=== PATIENT | male | born 1955 | race African-American/Black ===

== ENCOUNTER 2023-05-16 15:25 | Outpatient (AMB) | payer BC, SELFPAY ==
--- NOTE | 2023-05-16 15:30 | HO.NEPHOV ---
HPI HPI Comments History of Present Illness Details I would the delight of seeing Daniel in consultation for [id number] hypertension. 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 He denies taking nonsteroidal anti-inflammatories. He has been on losartan and amlodipine and recently low-dose carvedilol has been introduced. He denies any coronary artery disease, congestive heart failure, carotid stenosis, CVA, peripheral arterial disease, renal artery stenosis, palpitation, syncope or having orthostatic symptoms. He does not have any chest pain, shortness of breath, paroxysmal nocturnal dyspnea, orthopnea or urinary symptoms. His renal functions are normal. Serum potassium is normal. He has not known to have hypercalcemia, hypokalemia, sleep apnea. He claims to be compliant with his medications. He is anxious that his blood pressure is not getting controlled. [facility], [facility]1983 Medical History (Updated 05/16/23 @ 15:59 by Erik Gore MD) Tubular adenoma of colon Mild intermittent asthma Left knee pain Hypertension Hypercholesteremia Epigastric pain Woodson's palsy Surgical History (Updated 05/16/23 @ 15:36 by Ofelia Arshad MA) History of knee replacement H/O colonoscopy Family History (Updated 05/16/23 @ 15:36 by Ofelia Arshad MA) Mother Cancer Father Hypertension Social History (Updated 05/16/23 @ 15:37 by Ofelia Arshad MA) Alcohol intake: current Comment: Occasional Patient Tobacco Use Status: Never used Tobacco Vital Signs 05/16/23 15:32 Height 6 ft Weight 213 lb 4 oz BMI 28.9 BP 150/90 H Blood Pressure Location Lt brachial Position Sitting Pulse 94 Pulse Source Pulse Oximeter Pulse Oximetry (%) 99 Oxygen Delivery Method Room Air Physical Exam Vital Signs: Last Vital Signs Pulse 94 05/16/23 15:32 BP 150/90 H 05/16/23 15:32 Pulse Ox 99 05/16/23 15:32 Oxygen Delivery Method Room Air 05/16/23 15:32 BMI result Body Mass Index 28.9 Const General: comfortable and no acute distress Orientation/consciousness: patient oriented x3 HEENT Head: Yes normocephalic Mouth: Normal oral and palatal mucosa present Eyes EOM: EOMs intact bilaterally Neck Neck: Yes supple Resp Auscultation: clear to auscultation bilaterally Cardio Jugular venous distension: no JVD Rate: regular rate GI Palpation (GI): Soft to palpation Auscultation: normal bowel sounds General: Yes no CVA tenderness Back/Spine/Pelvis Back: no CVA tenderness Skin General skin exam: no rashes or lesions noted Neuro General: patient oriented x3 and moves all extremities Extrem General: Yes no pedal edema Assessment & Plan Assessment & Plan (1) Hypertension: Code(s): I10 - Essential (primary) hypertension Qualifiers: Hypertension type: primary hypertension Qualified Code(s): I10 - Essential (primary) hypertension Plan Daniel has longstanding hypertension. It is not at goal now. His blood pressure remained very high and he failed DOT testing. His renal functions are normal. His serum potassium is normal as well. He is not known to have uncontrolled thyroid disorders, obstructive sleep apnea, hypercalcemia, orthostasis, palpitation, history of retinopathy, proteinuria or heart failure. I asked him not to take any amlodipine and increased his carvedilol to 12.5 mg twice daily. He could continue his current dose of angiotensin receptor antonio. He should cut back sodium in the diet and maintain good hydration. He should avoid nonsteroidal anti-inflammatories. I am going to see him back in 2 weeks to optimize his medications and get his blood pressure to goal so that he can pass his DOT. If his blood pressure remains high I plan to check renin, aldosterone, renin/aldosterone ratio, TSH, cortisol, plasma metanephrines along with a Doppler of his renal arteries. More than 50% time spent discussing about all this. I answered all his questions. Follow-up appointment given. Medications: New carvedilol must administer with a meal/food 12.5 mg PO BID 60 tabs 3RF 30 days Coding Level of Care Code New Pt Level 4 (03886) Diagnoses Primary hypertension I10 Hypertension type: primary hypertension Results Reviewed Nephrology Results: No Data to Display
[2023-05-16 15:32] VITALS: BP 150/90; PULSE 94; O2SAT 99; BMI 28.9
== END 2023-05-16 16:05 | disposition home or self-care (01) ==
PROVIDERS: PCP Internal Medicine; Referring Provider Internal Medicine; Visit Provider Internal Medicine Nephrology
DX: I10 Essential (primary) hypertension (principal)
CPT/HCPCS: 99204

== ENCOUNTER → 2023-05-16 15:25 | Outpatient (BNVA) | payer BC, SELFPAY | PROVIDERS: PCP Internal Medicine; Referring Provider Internal Medicine; Visit Provider Internal Medicine Nephrology ==

== ENCOUNTER 2023-06-03 14:34 | Outpatient (AMB) | payer BC, SELFPAY ==
[2023-06-03 14:52] VITALS: BP 140/90; PULSE 75; O2SAT 98; BMI 30.1
--- NOTE | 2023-06-03 14:52 | HO.NEPHOV_ITS ---
HPI HPI Comments History of Present Illness Details I would the delight of seeing Daniel in consultation for [id number] hypertension. 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 He denies taking nonsteroidal anti-inflammatories. He has been on losartan and amlodipine and recently low-dose carvedilol has been introduced. He denies any coronary artery disease, congestive heart failure, carotid stenosis, CVA, peripheral arterial disease, renal artery stenosis, palpitation, syncope or having orthostatic symptoms. He does not have any chest pain, shortness of breath, paroxysmal nocturnal dyspnea, orthopnea or urinary symptoms. His renal functions are normal. Serum potassium is normal. He has not known to have hypercalcemia, hypokalemia, sleep apnea. He claims to be compliant with his medications. He is anxious that his blood pressure is not getting controlled. [facility] Medical History (Updated 05/16/23 @ 15:59 by Erik Gore MD) Tubular adenoma of colon Mild intermittent asthma Left knee pain Hypertension Hypercholesteremia Epigastric pain Woodson's palsy Surgical History History of knee replacement H/O colonoscopy Family History Mother Cancer Father Hypertension Social History Alcohol intake: current Comment: Occasional Patient Tobacco Use Status: Never used Tobacco Vital Signs 06/03/23 14:52 Height 6 ft Weight 222 lb 2 oz BMI 30.1 BP 140/90 H Blood Pressure Location Lt brachial Position Sitting Pulse 75 Pulse Source Pulse Oximeter Pulse Oximetry (%) 98 Oxygen Delivery Method Room Air Physical Exam Vital Signs: Last Vital Signs Pulse 75 06/03/23 14:52 BP 180/110 H 06/03/23 14:52 Pulse Ox 98 06/03/23 14:52 Oxygen Delivery Method Room Air 06/03/23 14:52 BMI result Body Mass Index 30.1 Const General: comfortable and no acute distress Orientation/consciousness: patient oriented x3 HEENT Head: Yes normocephalic Mouth: Normal oral and palatal mucosa present Eyes EOM: EOMs intact bilaterally Neck Neck: Yes supple Resp Auscultation: clear to auscultation bilaterally Cardio Jugular venous distension: no JVD Rate: regular rate GI Palpation (GI): Soft to palpation Auscultation: normal bowel sounds General: Yes no CVA tenderness Back/Spine/Pelvis Back: no CVA tenderness Skin General skin exam: no rashes or lesions noted Neuro General: patient oriented x3 and moves all extremities Extrem General: Yes no pedal edema Assessment & Plan Assessment & Plan (1) Hypertension: Code(s): I10 - Essential (primary) hypertension Qualifiers: Hypertension type: primary hypertension Qualified Code(s): I10 - Essential (primary) hypertension Plan Daniel has longstanding hypertension. It is not at goal now. His blood pressure remained very high and he failed DOT testing. His renal functions are normal. His serum potassium is normal as well. He is not known to have uncontrolled thyroid disorders, obstructive sleep apnea, hypercalcemia, orthostasis, palpitation, history of retinopathy, proteinuria or heart failure. I asked him not to take any amlodipine and increased his carvedilol to 25 mg twice daily. He could continue his current dose of angiotensin receptor antonio. He should cut back sodium in the diet and maintain good hydration. He should avoid nonsteroidal anti-inflammatories. I am going to see him back in 2 weeks to optimize his medications and get his blood pressure to goal so that he can pass his DOT. If his blood pressure remains high I plan to check renin, aldosterone, renin/aldosterone ratio, TSH, cortisol, plasma metanephrines along with a Doppler of his renal arteries. More than 50% time spent discussing about all this. I answered all his questions. Follow-up appointment given. Medications: Changed From carvedilol must administer with a meal/food 12.5 mg PO BID 30 days 60 tabs 3RF To carvedilol must administer with a meal/food 25 mg (2 x 12.5 mg) PO BID 30 days 120 tabs 3RF Coding Level of Care Code Est Pt Level 4 (29338) Diagnoses Primary hypertension I10 Hypertension type: primary hypertension Results Reviewed Nephrology Results: No Data to Display
== END 2023-06-03 15:20 | disposition home or self-care (01) ==
PROVIDERS: PCP Internal Medicine; Visit Provider Internal Medicine Nephrology
DX: I10 Essential (primary) hypertension (principal)
CPT/HCPCS: 99214

== ENCOUNTER → 2023-06-03 14:34 | Outpatient (BNVA) | payer BC, SELFPAY | PROVIDERS: PCP Internal Medicine; Visit Provider Internal Medicine Nephrology ==

== ENCOUNTER 2023-06-17 11:36 | Outpatient (AMB) | payer BC, SELFPAY ==
--- NOTE | 2023-06-17 11:49 | HO.NEPHOV_ITS ---
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 He denies taking nonsteroidal anti-inflammatories. He has been on losartan and amlodipine and recently low-dose carvedilol has been introduced. He denies any coronary artery disease, congestive heart failure, carotid stenosis, CVA, peripheral arterial disease, renal artery stenosis, palpitation, syncope or having orthostatic symptoms. He does not have any chest pain, shortness of breath, paroxysmal nocturnal dyspnea, orthopnea or urinary symptoms. His renal functions are normal. Serum potassium is normal. He has not known to have hypercalcemia, hypokalemia, sleep apnea. He claims to be compliant with his medications. He is anxious that his blood pressure is not getting controlled. [facility] Medical History (Updated 05/16/23 @ 15:59 by Erik Gore MD) Tubular adenoma of colon Mild intermittent asthma Left knee pain Hypertension Hypercholesteremia Epigastric pain Woodson's palsy Surgical History History of knee replacement H/O colonoscopy Family History Mother Cancer Father Hypertension Social History Alcohol intake: current Comment: Occasional Patient Tobacco Use Status: Never used Tobacco Vital Signs 06/17/23 11:50 Height 6 ft Weight 221 lb 8 oz BMI 30.0 BP 140/90 H Blood Pressure Location Lt brachial Position Sitting Pulse 62 Pulse Source Pulse Oximeter Pulse Oximetry (%) 98 Oxygen Delivery Method Room Air Physical Exam Vital Signs: Last Vital Signs Pulse 62 06/17/23 11:50 BP 180/100 H 06/17/23 11:50 Pulse Ox 98 06/17/23 11:50 Oxygen Delivery Method Room Air 06/17/23 11:50 BMI result Body Mass Index 30.0 Const General: comfortable and no acute distress Orientation/consciousness: patient oriented x3 HEENT Head: Yes normocephalic Mouth: Normal oral and palatal mucosa present Eyes EOM: EOMs intact bilaterally Neck Neck: Yes supple Resp Auscultation: clear to auscultation bilaterally Cardio Jugular venous distension: no JVD Rate: regular rate GI Palpation (GI): Soft to palpation Auscultation: normal bowel sounds General: Yes no CVA tenderness Back/Spine/Pelvis Back: no CVA tenderness Skin General skin exam: no rashes or lesions noted Neuro General: patient oriented x3 and moves all extremities Extrem General: Yes no pedal edema Assessment & Plan Assessment & Plan (1) Hypertension: Code(s): I10 - Essential (primary) hypertension Qualifiers: Hypertension type: primary hypertension Qualified Code(s): I10 - Essential (primary) hypertension Plan Daniel has longstanding hypertension. It is not at goal now. His blood pressure remained very high and he failed DOT testing. His renal functions are normal. His serum potassium is normal as well. He is not known to have uncontrolled thyroid disorders, obstructive sleep apnea, hypercalcemia, orthostasis, palpitation, history of retinopathy, proteinuria or heart failure. I asked him not to take any amlodipine and continue his carvedilol to 25 mg twice daily. I increased his losartan to 75 mg daily. He should cut back sodium in the diet and maintain good hydration. He should avoid nonsteroidal anti-inflammatories. I am going to see him back in 2 weeks to optimize his medications and get his blood pressure to goal so that he can pass his DOT. If his blood pressure remains high I plan to check renin, aldosterone, renin/aldosterone ratio, TSH, cortisol, plasma metanephrines along with a Doppler of his renal arteries. More than 50% time spent discussing about all this. I answered all his questions. Follow-up appointment given. Orders: Orders Electrolytes Today I10 - Essential (primary) hypertension Blood Urea Nitrogen Today I10 - Essential (primary) hypertension Metanephrines, Plasma Today I10 - Essential (primary) hypertension Cortisol Random Today I10 - Essential (primary) hypertension Aldost/Renin Today I10 - Essential (primary) hypertension Renin Today I10 - Essential (primary) hypertension Aldosterone Today I10 - Essential (primary) hypertension Creatinine Today I10 - Essential (primary) hypertension TSH reflex Free T4 Today I10 - Essential (primary) hypertension Coding Level of Care Code Est Pt Level 4 (22677) Diagnoses Primary hypertension I10 Hypertension type: primary hypertension Results Reviewed Nephrology Results: No Data to Display
[2023-06-17 11:50] VITALS: BP 140/90; PULSE 62; O2SAT 98
== END 2023-06-17 12:26 | disposition home or self-care (01) ==
PROVIDERS: PCP Internal Medicine; Visit Provider Internal Medicine Nephrology
DX: I10 Essential (primary) hypertension (principal)
CPT/HCPCS: 99214

== ENCOUNTER → 2023-06-17 11:36 | Outpatient (BNVA) | payer BC, SELFPAY | PROVIDERS: PCP Internal Medicine; Visit Provider Internal Medicine Nephrology ==

== ENCOUNTER 2023-06-26 14:50 | Outpatient (REF) | payer BC, SELFPAY ==
[2023-06-26 17:12] LABS: Anion Gap 10 (12-20); Blood Urea Nitrogen 14 mg/dL (9-16); Carbon Dioxide 25 mmol/L (22-29); Chloride 109 mmol/L (96-108); Estimated Glomerular Filt Rate > 60; Potassium 4.2 mmol/L (3.3-5.1); Sodium 140 mmol/L (135-145)
[2023-06-26 17:29] LABS: Cortisol Random 6.1 ug/dL; TSH reflex Free T4 2.89 uIU/mL (0.32-4.0)
[2023-07-06 15:24] LABS: Renin 0.62 ng/mL/h (0.25-5.82)
[2023-07-09 18:59] LABS: Aldosterone/Renin Ratio 2.4 Ratio (0.9-28.9); Plasma Renin Activity 1.26 ng/mL/h (0.25-5.82)
== END 2023-06-26 14:51 | disposition home or self-care (01) ==
LOC: HO.HKASLDS 14:50
PROVIDERS: Visit Provider Internal Medicine Nephrology
DX: I10 Essential (primary) hypertension (principal)
CPT/HCPCS: 36415; 80051; 82088; 82533; 82565; 84244; 84443; 84520

== ENCOUNTER 2023-07-01 11:55 | Outpatient (AMB) | payer BC, SELFPAY ==
[2023-07-01 12:05] VITALS: BP 180/100; PULSE 63; O2SAT 97; BMI 30.4
--- NOTE | 2023-07-01 12:05 | HO.NEPHOV ---
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 He denies taking nonsteroidal anti-inflammatories. He has been on losartan and amlodipine and recently low-dose carvedilol has been introduced. He denies any coronary artery disease, congestive heart failure, carotid stenosis, CVA, peripheral arterial disease, renal artery stenosis, palpitation, syncope or having orthostatic symptoms. He does not have any chest pain, shortness of breath, paroxysmal nocturnal dyspnea, orthopnea or urinary symptoms. His renal functions are normal. Serum potassium is normal. He has not known to have hypercalcemia, hypokalemia, sleep apnea. He claims to be compliant with his medications. He is anxious that his blood pressure is not getting controlled. [facility] Medical History (Updated 05/16/23 @ 15:59 by Erik Gore MD) Tubular adenoma of colon Mild intermittent asthma Left knee pain Hypertension Hypercholesteremia Epigastric pain Woodson's palsy Surgical History History of knee replacement H/O colonoscopy Family History Mother Cancer Father Hypertension Social History Alcohol intake: current Comment: Occasional Patient Tobacco Use Status: Never used Tobacco Vital Signs 07/01/23 12:05 Height 6 ft Weight 224 lb 2 oz BMI 30.4 BP 180/100 H Blood Pressure Location Rt brachial Position Sitting Pulse 63 Pulse Source Pulse Oximeter Pulse Oximetry (%) 97 Oxygen Delivery Method Room Air Physical Exam Const General: comfortable and no acute distress Orientation/consciousness: patient oriented x3 HEENT Head: Yes normocephalic Mouth: Normal oral and palatal mucosa present Eyes EOM: EOMs intact bilaterally Neck Neck: Yes supple Resp Auscultation: clear to auscultation bilaterally Cardio Jugular venous distension: no JVD Rate: regular rate GI Palpation (GI): Soft to palpation Auscultation: normal bowel sounds General: Yes no CVA tenderness Back/Spine/Pelvis Back: no CVA tenderness Skin General skin exam: no rashes or lesions noted Neuro General: patient oriented x3 and moves all extremities Extrem General: Yes no pedal edema Assessment & Plan Assessment & Plan (1) Hypertension: Code(s): I10 - Essential (primary) hypertension Qualifiers: Hypertension type: primary hypertension Qualified Code(s): I10 - Essential (primary) hypertension Plan Daniel has longstanding hypertension. It is not at goal now. His blood pressure remained very high and he failed DOT testing. His renal functions are normal. His serum potassium is normal as well. He is not known to have uncontrolled thyroid disorders, obstructive sleep apnea, hypercalcemia, orthostasis, palpitation, history of retinopathy, proteinuria or heart failure. I asked him to continue his carvedilol to 25 mg twice daily. I increased his losartan to 100 mg daily . I plan to add Nifedipine 30 mg daily, if needed . He should cut back sodium in the diet and maintain good hydration. He should avoid nonsteroidal anti-inflammatories. I am going to see him back in 2 weeks to optimize his medications and get his blood pressure to goal so that he can pass his DOT. His renin, aldosterone, renin/aldosterone ratio is pending. HIs TSH, cortisol ar enormal. along with a Doppler of his renal arteries. More than 50% time spent discussing about all this. I answered all his questions. Follow-up appointment given.. Orders: Orders US renal BI Today I10 - Essential (primary) hypertension US renal doppler Today I10 - Essential (primary) hypertension Medications: New losartan 100 mg PO DAILY 30 tabs 5RF Coding Level of Care Code Est Pt Level 4 (56954) Diagnoses Primary hypertension I10 Hypertension type: primary hypertension Results Reviewed Nephrology Results: Sodium 140 mmol/L (135-145) 06/26/23 Potassium 4.2 mmol/L (3.3-5.1) 06/26/23 Chloride 109 mmol/L (96-108) H 06/26/23 Carbon Dioxide 25 mmol/L (22-29) 06/26/23 BUN 14 mg/dL (9-16) 06/26/23 Creatinine 0.97 mg/dL (0.5-1.4) 06/26/23
== END 2023-07-01 12:30 | disposition home or self-care (01) ==
PROVIDERS: PCP Internal Medicine; Visit Provider Internal Medicine Nephrology
DX: I10 Essential (primary) hypertension (principal)
CPT/HCPCS: 99214

== ENCOUNTER → 2023-07-01 11:55 | Outpatient (BNVA) | payer BC, SELFPAY | PROVIDERS: PCP Internal Medicine; Visit Provider Internal Medicine Nephrology ==

== ENCOUNTER 2023-07-11 08:44 | Outpatient (REF) | payer BC, SELFPAY ==
--- NOTE | ~2023-07-11 | US_ITS ---
EXAMINATION: ULTRASOUND RENAL WITH DOPPLER CLINICAL INFORMATION: Hypertension COMPARISON: None. TECHNIQUE: Real-time grayscale, color Doppler, and duplex Doppler evaluation of the kidneys and renal vasculature was performed. FINDINGS: RENAL MEASUREMENTS: Right: 12.5 x 4.8 x 4.6 cm (Sag x AP x TV) Left: 12.1 x 5.0 x 5.0 cm (Sag x AP x TV) The renal parenchyma appears normal. No hydronephrosis or nephrolithiasis. DOPPLER INTERROGATION: Aorta: 94.6 cm/sec Right Main Renal Artery: Proximal: 119 cm/sec Mid: 114 cm/sec Distal: 145 cm/sec Left Main Renal Artery: Proximal: 115 cm/sec Mid: 153 cm/sec Distal: 114 cm/sec Renal-Aortic Ratio (RAR): Right: 1.53 Left: 1.62 US/US renal doppler IMPRESSION: No evidence of renal artery stenosis.
--- NOTE | ~2023-07-11 | US_ITS ---
EXAMINATION: ULTRASOUND RENAL WITH DOPPLER CLINICAL INFORMATION: Hypertension COMPARISON: None. TECHNIQUE: Real-time grayscale, color Doppler, and duplex Doppler evaluation of the kidneys and renal vasculature was performed. FINDINGS: RENAL MEASUREMENTS: Right: 12.5 x 4.8 x 4.6 cm (Sag x AP x TV) Left: 12.1 x 5.0 x 5.0 cm (Sag x AP x TV) The renal parenchyma appears normal. No hydronephrosis or nephrolithiasis. DOPPLER INTERROGATION: Aorta: 94.6 cm/sec Right Main Renal Artery: Proximal: 119 cm/sec Mid: 114 cm/sec Distal: 145 cm/sec Left Main Renal Artery: Proximal: 115 cm/sec Mid: 153 cm/sec Distal: 114 cm/sec Renal-Aortic Ratio (RAR): Right: 1.53 Left: 1.62 US/US renal BI IMPRESSION: No evidence of renal artery stenosis.
== END 2023-07-11 08:45 | disposition home or self-care (01) ==
LOC: HO.US 08:44
PROVIDERS: PCP Internal Medicine; Visit Provider Internal Medicine Nephrology
DX: I10 Essential (primary) hypertension (principal)
CPT/HCPCS: 76775; 93975

== ENCOUNTER 2023-07-29 15:21 | Outpatient (AMB) | payer BC, SELFPAY ==
--- NOTE | 2023-07-29 15:32 | HO.NEPHOV_ITS ---
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 He denies taking nonsteroidal anti-inflammatories. He has been on losartan and amlodipine and recently low-dose carvedilol has been introduced. He denies any coronary artery disease, congestive heart failure, carotid stenosis, CVA, peripheral arterial disease, renal artery stenosis, palpitation, syncope or having orthostatic symptoms. He does not have any chest pain, shortness of breath, paroxysmal nocturnal dyspnea, orthopnea or urinary symptoms. His renal functions are normal. Serum potassium is normal. He has not known to have hypercalcemia, hypokalemia, sleep apnea. He claims to be compliant with his m edications. [facility] Medical History (Updated 05/16/23 @ 15:59 by Erik Gore MD) Tubular adenoma of colon Mild intermittent asthma Left knee pain Hypertension Hypercholesteremia Epigastric pain Woodson's palsy Surgical History History of knee replacement H/O colonoscopy Family History Mother Cancer Father Hypertension Social History Alcohol intake: current Comment: Occasional Patient Tobacco Use Status: Never used Tobacco Physical Exam Vital Signs: Last Vital Signs Pulse 69 07/29/23 15:35 BP 130/80 07/29/23 15:35 Pulse Ox 96 07/29/23 15:35 Oxygen Delivery Method Room Air 07/29/23 15:35 BMI result Body Mass Index 30.6 Const General: comfortable and no acute distress Orientation/consciousness: patient oriented x3 HEENT Head: Yes normocephalic Mouth: Normal oral and palatal mucosa present Eyes EOM: EOMs intact bilaterally Neck Neck: Yes supple Resp Auscultation: clear to auscultation bilaterally Cardio Jugular venous distension: no JVD Rate: regular rate GI Palpation (GI): Soft to palpation Auscultation: normal bowel sounds General: Yes no CVA tenderness Back/Spine/Pelvis Back: no CVA tenderness Skin General skin exam: no rashes or lesions noted Neuro General: patient oriented x3 and moves all extremities Extrem General: Yes no pedal edema Results Reviewed Nephrology Results: Sodium 140 mmol/L (135-145) 06/26/23 Potassium 4.2 mmol/L (3.3-5.1) 06/26/23 Chloride 109 mmol/L (96-108) H 06/26/23 Carbon Dioxide 25 mmol/L (22-29) 06/26/23 BUN 14 mg/dL (9-16) 06/26/23 Creatinine 0.97 mg/dL (0.5-1.4) 06/26/23 Renal US 07/11/23 Assessment & Plan Assessment & Plan (1) Hypertension: Code(s): I10 - Essential (primary) hypertension Category: Medical Qualifiers: Hypertension type: primary hypertension Qualified Code(s): I10 - Essential (primary) hypertension Plan Daniel has longstanding hypertension. It is at goal now. In the past his blood pressure remained very high and he failed DOT testing. His renal functions are normal. His serum potassium is normal as well. He is not known to have uncontrolled thyroid disorders, obstructive sleep apnea, hypercalcemia, orthostasis, palpitation, history of retinopathy, proteinuria or heart failure. I asked him to continue his carvedilol to 25 mg twice daily along with to 100 mg daily . I plan to add Nifedipine 30 mg daily,in the future, if needed . He should cut back sodium in the diet and maintain good hydration. He should avoid nonsteroidal anti-inflammatories. Secondary work up has been negative. More than 50% time spent discussing about all this. I answered all his questions. Follow-up appointment given Coding Level of Care Code Est Pt Level 4 (79525) Diagnoses Primary hypertension I10 Hypertension type: primary hypertension
[2023-07-29 15:35] VITALS: BP 130/80; PULSE 69; O2SAT 96; BMI 30.6
== END 2023-07-29 16:15 | disposition home or self-care (01) ==
PROVIDERS: PCP Internal Medicine; Visit Provider Internal Medicine Nephrology
DX: I10 Essential (primary) hypertension (principal)
CPT/HCPCS: 99214

== ENCOUNTER → 2023-07-29 15:21 | Outpatient (BNVA) | payer BC, SELFPAY | PROVIDERS: PCP Internal Medicine; Visit Provider Internal Medicine Nephrology ==

== ENCOUNTER 2023-10-07 14:56 | Outpatient (AMB) | payer BC, SELFPAY ==
[2023-10-07 15:18] VITALS: BP 130/80; PULSE 62; O2SAT 97; BMI 29.7
--- NOTE | 2023-10-07 15:18 | HO.NEPHOV_ITS ---
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 He has hypertension for a long time. He is taking nonsteroidal anti-inflammatories. He denies any coronary artery disease, congestive heart failure, carotid stenosis, CVA, peripheral arterial disease, renal artery stenosis, palpitation, syncope or having orthostatic symptoms. He does not have any chest pain, shortness of breath, paroxysmal nocturnal dyspnea, orthopnea or urinary symptoms. His renal functions are normal. Serum potassium is normal. He has not known to have hypercalcemia, hypokalemia, sleep apnea. He claims to be compliant with his medications. [facility] Medical History (Updated 05/16/23 @ 15:59 by Erik Gore MD) Tubular adenoma of colon Mild intermittent asthma Left knee pain Hypertension Hypercholesteremia Epigastric pain Woodson's palsy Surgical History History of knee replacement H/O colonoscopy Family History Mother Cancer Father Hypertension Social History Alcohol intake: current Comment: Occasional Patient Tobacco Use Status: Never used Tobacco Physical Exam Vital Signs: Last Vital Signs Pulse 62 10/07/23 15:18 BP 174/110 H 10/07/23 15:18 Pulse Ox 97 10/07/23 15:18 Oxygen Delivery Method Room Air 10/07/23 15:18 BMI result Body Mass Index 29.7 Const General: comfortable and no acute distress Orientation/consciousness: patient oriented x3 HEENT Head: Yes normocephalic Mouth: Normal oral and palatal mucosa present Eyes EOM: EOMs intact bilaterally Neck Neck: Yes supple Resp Auscultation: clear to auscultation bilaterally Cardio Jugular venous distension: no JVD Rate: regular rate GI Palpation (GI): Soft to palpation Auscultation: normal bowel sounds General: Yes no CVA tenderness Back/Spine/Pelvis Back: no CVA tenderness Skin General skin exam: no rashes or lesions noted Neuro General: patient oriented x3 and moves all extremities Results Reviewed Nephrology Results: Sodium 140 mmol/L (135-145) 06/26/23 Potassium 4.2 mmol/L (3.3-5.1) 06/26/23 Chloride 109 mmol/L (96-108) H 06/26/23 Carbon Dioxide 25 mmol/L (22-29) 06/26/23 BUN 14 mg/dL (9-16) 06/26/23 Creatinine 0.97 mg/dL (0.5-1.4) 06/26/23 Renal US 07/11/23 Assessment & Plan Assessment & Plan (1) Hypertension: Code(s): I10 - Essential (primary) hypertension Category: Medical Qualifiers: Hypertension type: primary hypertension Qualified Code(s): I10 - Essential (primary) hypertension Plan Daniel has longstanding hypertension. His renal functions are normal. His serum potassium is normal as well. He is not known to have uncontrolled thyroid disorders, obstructive sleep apnea, hypercalcemia, orthostasis, palpitation, history of retinopathy, proteinuria or heart failure. I asked him to continue his carvedilol to 25 mg twice daily along with losartan 100 mg daily . I plan to add Nifedipine 30 mg daily,in the future, if needed . He should cut back sodium in the diet and maintain good hydration. He should avoid nonsteroidal anti- inflammatories. Secondary work up has been negative. I answered all his questions. Follow-up appointment given Orders: Orders Electrolytes Today I10 - Essential (primary) hypertension Creatinine Today I10 - Essential (primary) hypertension Blood Urea Nitrogen Today I10 - Essential (primary) hypertension Coding Level of Care Code Est Pt Level 4 (57800) Diagnoses Primary hypertension I10 Hypertension type: primary hypertension
== END 2023-10-07 15:44 | disposition home or self-care (01) ==
PROVIDERS: PCP Internal Medicine; Visit Provider Internal Medicine Nephrology
DX: I10 Essential (primary) hypertension (principal)
CPT/HCPCS: 99214

== ENCOUNTER → 2023-10-07 14:56 | Outpatient (BNVA) | payer BC, SELFPAY | PROVIDERS: PCP Internal Medicine; Visit Provider Internal Medicine Nephrology ==